=== PATIENT | female | born 1945 | race Caucasian/White ===

== ENCOUNTER → 2018-01-07 09:44 | Outpatient (CLI) | payer MEDICARE, BC ==
[2015-01-10 07:59] VITALS: BMI 29.2
[~2018-01-07 09:44] MED LIST: ASPIRIN EC81 M1 PO; CELEBREX200 MG PO; FIBERCON625 MG PO; LIPITOR20 MG PO; MULTI-DAY VITAM1 TAB PO; NEXIUM40 MG PO; NORVASC10 MG PO; PROBIOTIC1 EAC1 PO; TUMS500 MG PO; VITAMIN D5000 UNIT PO
[2018-01-09 06:13] LABS: ENDOMYSIAL ANTIBODY IGA Negative (Negative)
[2018-01-11 14:16] LABS: ANTIGLIADIN IGA 6 units (0-19); ANTIGLIADIN IGG 3 units (0-19)
== END | disposition home or self-care (01) ==
LOC: D.LAB 09:44
PROVIDERS: Internal Medicine Gastroenterology
DX: Z87.19 Personal history of other diseases of the digestive system (principal)